=== PATIENT | female | born 1995 | race Caucasian/White ===

== ENCOUNTER 2020-03-30 05:34 | Inpatient (IN) | payer MEDICAID ==
[~2020-03-30] VITALS: Ht 160 cm; Wt 64.9 kg
[2020-03-30] MEDS ORDERED: DEXT 5%/LR + PITOCIN 20UNITS/L 1,000 ML IV SCH (07:22)
[2020-03-30] MEDS ORDERED: CARBOPROST TROMETHAMINE 250 MCG/ML AMPUL IM PRN (07:30)
[2020-03-30] MEDS ORDERED: LIDOCAINE HCL 1% 20ML VIAL (Pyxis) INJ INFIL PRN (07:30)
[2020-03-30] MEDS ORDERED: NALOXONE HCL 0.4 MG/ML 1ML VIAL IM PRN (07:30)
[2020-03-30] MEDS ORDERED: METHYLERGONOVINE MALEATE 0.2 MG/ML IM PRN (07:30)
[2020-03-30] MEDS ORDERED: MISOPROSTOL 200MCG TABLET VG PRN (07:45)
[2020-03-30 07:51] LABS: INR 0.9; PARTIAL THROMBOPLASTIN TIME 31.2 sec (23.4-31.0)
[2020-03-30 07:57] LABS: CLARITY URINE CLEAR (CLEAR); COLOR URINE YELLOW (YELLOW); KETONES URINE NEGATIVE (NEGATIVE); LEUKOCYTE ESTERASE URINE NEGATIVE (NEGATIVE); NITRITE URINE NEGATIVE (NEGATIVE); OCCULT BLOOD URINE NEGATIVE (NEGATIVE); PH URINE 5.5 (4.5-8.0); PROTEIN URINE 1+ (NEGATIVE); SPECIFIC GRAVITY URINE 1.021 (1.005-1.030); UROBILINOGEN URINE 0.2 E.U./dL (0.2-1.0)
[2020-03-30] MEDS ORDERED: AMPICILLIN 2,000 MG in SODIUM CHLORIDE 0.9% 100 ML IV SCH (08:00)
[2020-03-30 08:03] LABS: BASOPHILS % 0.7 % (0.0-2.0); EOSINOPHILS % 2.6 % (0.0-5.0); HEMATOCRIT. 34.7 % (36.0-48.0); LYMPHOCYTES % 19.2 % (20.0-50.0); MEAN CORPUSCULAR HEMOGLOBIN 30.5 pg (28.0-32.0); MEAN CORPUSCULAR VOLUME 88.2 fL (81.0-99.0); MONOCYTES % 8.2 % (2.0-8.0); NEUTROPHILS % 69.3 % (40.0-76.0); RED BLOOD CELL COUNT 3.93 mill/uL (4.2-5.4); RED CELL DISTRIBUTION WIDTH 12.5 % (11.6-14.6)
[2020-03-30 08:14] LABS: *AMPHETAMINES SCREEN URINE NEGATIVE (NEGATIVE); *BARBITURATES SCREEN URINE NEGATIVE (NEGATIVE); *BENZODIAZEPINES SCREEN URINE NEGATIVE (NEGATIVE); *COCAINE SCREEN URINE NEGATIVE (NEGATIVE); METHADONE URINE SCREEN NEGATIVE (NEGATIVE); OPIATES URINE SCREEN NEGATIVE (NEGATIVE)
[2020-03-30 08:15] LABS: CANNABINOID URINE SCREEN NEGATIVE (NEGATIVE); PHENCYCLIDINE URINE SCREEN NEGATIVE (NEGATIVE)
[2020-03-30 08:16] LABS: HEPATITIS B SURFACE ANTIGEN NEGATIVE
[2020-03-30] MEDS: LACTATED RINGERS 1,000 ML IV SCH ×2 (08:27→20:00)
[2020-03-30 10:30] LABS: PLATELET ESTIMATE NORMAL
[2020-03-30 10:59] LABS: HEMATOCRIT 33.7 % (36.0-48.0); HEMOGLOBIN 11.7 g/dL (12.0-16.0); MEAN CORPUSCULAR HEMOGLOBIN 30.5 pg (28.0-32.0); MEAN CORPUSCULAR VOLUME 87.5 fL (81.0-99.0); PLATELET 83 x1000/uL (130-400); RED BLOOD CELL COUNT 3.86 mill/uL (4.2-5.4); RED CELL DISTRIBUTION WIDTH 12.5 % (11.6-14.6)
[2020-03-30] MEDS: MISOPROSTOL 100MCG TABLET VG NR ×2 (14:23→18:28)
[2020-03-30] MEDS ORDERED: MISOPROSTOL 100MCG TABLET VG PRN (14:45)
[2020-03-30] MEDS: AMPICILLIN 1,000 MG in SODIUM CHLORIDE 0.9% 50 ML IV SCH ×2 (16:59→23:11)
[2020-03-30] MEDS: BUTORPHANOL TARTRATE 2 MG/ML VIAL IV PRN (21:32)
[2020-03-30 22:30] LABS: BASOPHILS % 0.3 % (0.0-2.0); EOSINOPHILS % 0.7 % (0.0-5.0); HEMATOCRIT. 35.6 % (36.0-48.0); HEMOGLOBIN. 12.4 g/dL (12.0-16.0); LYMPHOCYTES % 11.2 % (20.0-50.0); MEAN CORPUSCULAR HEMOGLOBIN 30.7 pg (28.0-32.0); MEAN CORPUSCULAR VOLUME 88.1 fL (81.0-99.0); MEAN PLATELET VOLUME 8.9 fl (7.4-10.4); MONOCYTES % 7.4 % (2.0-8.0); NEUTROPHILS % 80.4 % (40.0-76.0); PLATELET 60 x1000/uL (130-400); RED BLOOD CELL COUNT 4.04 mill/uL (4.2-5.4); RED CELL DISTRIBUTION WIDTH 12.8 % (11.6-14.6)
[2020-03-31] MEDS: BUTORPHANOL TARTRATE 2 MG/ML VIAL IV PRN (00:02)
[2020-03-31] MEDS ORDERED: DEXT 5%/LR + PITOCIN 20UNITS/L 1,000 ML IV SCH (02:56)
[2020-03-31] MEDS ORDERED: IBUPROFEN 400MG TABLET PO PRN (03:00)
[2020-03-31] MEDS ORDERED: DIPHENHYDRAMINE 25MG CAPSULE PO PRN (03:00)
[2020-03-31] MEDS ORDERED: LANOLIN OINT 7GM TUBE TOP PRN (03:00)
[2020-03-31] MEDS ORDERED: METHYLERGONOVINE MALEATE 0.2 MG/ML IM PRN (03:00)
[2020-03-31] MEDS ORDERED: GLYCERIN/WITCH HAZEL LEAF MEDICATED PAD TOP PRN (03:00)
[2020-03-31] MEDS ORDERED: ACETAMINOPHEN WITH CODEINE 300/30MG TABLET PO PRN ×2 (03:00)
[2020-03-31] MEDS ORDERED: BENZOCAINE/LANOLIN/ALOE VERA SPRAY TOP PRN (03:00)
[2020-03-31] MEDS ORDERED: BISACODYL 10MG SUPP PR PRN (03:00)
[2020-03-31 04:45] VITALS: BP 114/61
[2020-03-31 05:13] VITALS: BP 112/65
[2020-03-31 08:39] VITALS: BP 119/58
[2020-03-31] MEDS: PRENATAL VIT/FE FUMARATE/FA TABLET PO SCH (09:48)
[2020-03-31] MEDS: SIMETHICONE 80MG TABLET CHEW PO SCH ×2 (09:48→16:53)
[2020-03-31 13:27] LABS: BASOPHILS % 0.1 % (0.0-2.0); EOSINOPHILS % 0.5 % (0.0-5.0); HEMATOCRIT. 30.7 % (36.0-48.0); HEMOGLOBIN. 10.7 g/dL (12.0-16.0); LYMPHOCYTES % 10.4 % (20.0-50.0); MEAN CORPUSCULAR HEMOGLOBIN 30.4 pg (28.0-32.0); MEAN CORPUSCULAR VOLUME 87.3 fL (81.0-99.0); MEAN PLATELET VOLUME 9.2 fl (7.4-10.4); MONOCYTES % 7.3 % (2.0-8.0); NEUTROPHILS % 81.7 % (40.0-76.0); PLATELET 79 x1000/uL (130-400); RED BLOOD CELL COUNT 3.52 mill/uL (4.2-5.4); RED CELL DISTRIBUTION WIDTH 12.6 % (11.6-14.6)
[2020-03-31] MEDS: METHYLERGONOVINE MALEATE 0.2MG TABLET PO SCH ×3 (13:35→20:46)
[2020-03-31 16:00] VITALS: BP 116/59
[2020-03-31] MEDS: AMOXICILLIN/POTASSIUM CLAVULANATE 875/125MG TAB PO SCH (16:54)
[2020-03-31 20:00] VITALS: BP 120/67
[2020-03-31] MEDS ORDERED: DOCUSATE SODIUM 100MG CAPSULE PO SCH (21:00)
[2020-04-01] MEDS: METHYLERGONOVINE MALEATE 0.2MG TABLET PO SCH ×2 (01:06→04:50)
[2020-04-01 04:00] VITALS: BP 121/72
[2020-04-01] MEDS: AMOXICILLIN/POTASSIUM CLAVULANATE 875/125MG TAB PO SCH (04:51)
[2020-04-01 08:32] VITALS: BP 115/70
[2020-04-01 08:56] LABS: BASOPHILS % 0.3 % (0.0-2.0); EOSINOPHILS % 1.8 % (0.0-5.0); HEMATOCRIT. 30.6 % (36.0-48.0); HEMOGLOBIN. 10.5 g/dL (12.0-16.0); MEAN CORPUSCULAR HEMOGLOBIN 30.6 pg (28.0-32.0); MEAN CORPUSCULAR VOLUME 88.9 fL (81.0-99.0); MONOCYTES % 7.7 % (2.0-8.0); NEUTROPHILS % 72.2 % (40.0-76.0); RED BLOOD CELL COUNT 3.45 mill/uL (4.2-5.4); RED CELL DISTRIBUTION WIDTH 12.8 % (11.6-14.6)
[2020-04-01] MEDS ORDERED: FERROUS SULFATE 325MG TABLET PO SCH (09:00)
[2020-04-01] MEDS: SIMETHICONE 80MG TABLET CHEW PO SCH (09:09)
[2020-04-01] MEDS: PRENATAL VIT/FE FUMARATE/FA TABLET PO SCH (09:09)
== END 2020-04-01 11:10 | disposition home or self-care (01) | DRG 560 ==
LOC: OBSVTOIN 05:34 → 8 EST LDRP 05:34 → 8 EST A/PP 03-31 03:40
PROVIDERS: ADMIT Obstetrics & Gynecology; ATTEND Obstetrics & Gynecology
PROC: 10E0XZZ Delivery of Products of Conception, External Approach (ICD-10-PCS; principal; 2020-03-31)
PROC: 3E033VJ Introduction of Other Hormone into Peripheral Vein, Percutaneous Approach (ICD-10-PCS; 2020-03-31)
PROC: 0KQM0ZZ Repair Perineum Muscle, Open Approach (ICD-10-PCS; 2020-03-31)
DX: O99.824 Streptococcus B carrier state complicating childbirth (principal); O99.12 Other diseases of the blood and blood-forming organs and certain disorders involving the immune mechanism complicating childbirth; D69.6 Thrombocytopenia, unspecified; O69.81X0 Labor and delivery complicated by cord around neck, without compression, not applicable or unspecified; O70.1 Second degree perineal laceration during delivery; Z37.0 Single live birth; Z3A.41 41 weeks gestation of pregnancy
CPT/HCPCS: 36415; 80305; 81003; 85025; 85027; 86592; 86703; 86762; 86850; 86900; 87340; J0290; J0595; J2590; J3490; J7050